=== PATIENT | male | born 1990 | race Caucasian/White ===

== ENCOUNTER → 2017-03-02 | Outpatient (CLI) | payer BC ==
--- NOTE | 2017-03-02 10:30 | CT ---
EXAM DESCRIPTION: Head CLINICAL HISTORY: 27 years, Male, VERTIGO COMPARISON: None TECHNIQUE: Head CT was performed without IV contrast. This exam was performed according to our departmental dose-optimization program, which includes automated exposure control, adjustment of the mA and/or kV according to patient size and/or use of iterative reconstruction technique. FINDINGS: There is no acute intracranial hemorrhage. There is no midline shift or other mass effect. The ventricles and basilar cisterns are well maintained. Ott-white matter differentiation is intact. Visualized paranasal sinuses and orbits are unremarkable except for a small mucous retention cyst or polyp inferiorly in the right maxillary sinus only partially visualized. There is no calvarial fracture. IMPRESSION: No acute intracranial abnormality. Small mucous retention cyst or polyp in the right maxillary sinus only partially visualized. Electronically signed by: Nic Montoya MD 03/02/2017 10:29 AM CDT
== END | disposition home or self-care (01) ==
LOC: CT 08:12
PROVIDERS: ATTEND Nurse Practitioner Family
DX: H81.10 Benign paroxysmal vertigo, unspecified ear (principal)

== ENCOUNTER → 2017-10-23 | Outpatient (CLI) | payer BC ==
--- NOTE | 2017-10-24 17:55 | US ---
EXAM DESCRIPTION: Soft Tissue,Extremity CLINICAL HISTORY: SPLINTER IN FOOT COMPARISON: None. FINDINGS: Sonography was performed at the site of clinical concern. There is an echogenic focus consistent with foreign body in the subcutaneous soft tissues measuring 46 x 3 x 1 mm seen at the site of persistent pain. There are surrounding hypoechoic soft tissues consistent with edema. IMPRESSION: Retained foreign body. Electronically signed by: Dante Andres 10/24/2017 5:53 PM [facility]
== END ==
LOC: US 09:46
PROVIDERS: ATTEND Nurse Practitioner Family
DX: S90.851A Superficial foreign body, right foot, initial encounter (principal)

== ENCOUNTER → 2017-10-30 | Outpatient (CLI) | payer BC | END | disposition home or self-care (01) | LOC: LAB.O 13:21 | PROVIDERS: ATTEND Surgery | DX: L02.611 Cutaneous abscess of right foot (principal) ==

== ENCOUNTER → 2019-12-13 | Outpatient (CLI) | payer BC | LOC: GMAM 10:23 | PROVIDERS: ATTEND Family Medicine | DX: K30 Functional dyspepsia (principal) ==

== ENCOUNTER → 2020-04-26 | Outpatient (CLI) | payer BC | LOC: GMAM 17:11 | PROVIDERS: ATTEND Family Medicine | DX: R51 Headache (principal) ==

== ENCOUNTER → 2020-05-01 | Outpatient (CLI) | payer BC ==
--- NOTE | 2020-05-01 18:04 | MRI ---
EXAM DESCRIPTION: Brain w/wo Contrast CLINICAL HISTORY: HEADACHE COMPARISON: CT March 02, 2017 TECHNIQUE: MRI of the brain is performed according to our usual protocol including multiplanar multi sequence technique. Post gadolinium imaging is performed following IV administration of IV gadolinium contrast. FINDINGS: Sagittal T1 images show intact corpus callosum. Normal pituitary gland with normal T1 appearance of the maria del carmen and medulla and upper cervical cord. Normal signal intensity within the clivus and calvarium. Axial T2 fat sat images reveal preservation of intracranial vascular flow voids. Normal mendes matter and white matter T2 signal intensity. Normal ventricles with normal gyral and sulcal fold pattern. The globes appear intact and symmetrical. No abnormal fluid signal in the paranasal sinuses, tympanic cavities or mastoid air cells. Axial flair images show normal signal intensity of the mendes matter and the white matter. No microvascular ischemic changes. Diffusion weighted images are negative for focal intense increased signal intensity in the brain parenchyma to suggest restricted diffusion. ADC mapping is negative. Axial T1 precontrast images show normal mendes-white matter differentiation. No high signal intensity hemorrhagic lesion of the brain parenchyma. No subdural hematoma. Axial susceptibility weighted images are negative for focal signal loss to suggest abnormal brain parenchymal calcification or hemosiderin deposition. After IV contrast, axial and sagittal T1 images show normal enhancement of intracranial vessels. No enhancing intracranial mass or abnormal parenchymal enhancement to suggest disruption of the blood brain barrier. No abnormal enhancement within the internal auditory canals. Coronal T1 postcontrast images show normal dural sinus enhancement with normal enhancement of the pituitary gland. IMPRESSION: Normal pre and postcontrast MRI examination of the brain. Electronically signed by: Brendan Adkins MD 05/01/2020 6:03 PM CDT
== END ==
LOC: MRI 08:04
PROVIDERS: ATTEND Family Medicine
DX: R51 Headache (principal)